=== PATIENT | female | born 1995 | race African-American/Black ===

== ENCOUNTER 2019-09-26 22:53 | Emergency (ER) | payer OTHER ==
--- NOTE | 2019-09-27 01:26 | ED ---
Complex/Multi-Sys Presentation - HPI Summary HPI Summary: Patient is a 24 y/o F presenting to [facility] for allergic reaction. She states that she believes that she had an allergic reaction three days ago as she developed tingling at her arms and mouth, difficulty breathing deeply, and eye swelling. Patient reports that she took Benadryl and slept off her Sx but still continued to have some difficulty swallowing after the episode. She states that the Sx worsened this evening and she came to ED for evaluation. Patient states that she discovered that she had a shellfish allergy a year ago and states that she had a similar presentation of Sx. She states that she ate some noodles before her episode three days ago and had frozen pizza before her difficulty swallowing worsened this evening. PMHx of asthma noted. NKDA reported. LNMP was a month ago, patient states that she is slightly late but notes that she is on a new acne medication (spironolactone). FMHx of CA, HTN, asthma, and Penicillin allergy claimed. Patient has not had allergy testing. She notes that she has an epi-pen but did not use it. Patient has an appointment with an perfect bind machine operator in the next few months. Home medications and allergies are reviewed. - History Of Current Complaint Chief Complaint: EDAllergicReaction Time Seen by Provider: 09/27/19 01:03 Hx Obtained From: Patient Onset/Duration: Resolved Timing: Intermittent, Lasting: Severity Currently: None - pain denied Associated Signs And Symptoms: Positive: Other - difficulty swallowing, tingling at her arms and mouth, difficulty breathing deeply, and eye swelling - Allergies/Home Medications Allergies/Adverse Reactions: Allergies Allergy/AdvReac Type Severity Reaction Status Date / Time Egg Derived Allergy See Comment Verified 09/26/19 22:59 shellfish derived Allergy Eyes Verified 09/26/19 22:58 Itchy/Swollen/Red/Watery Home Medications: Home Medications Spironolactone 50 mg PO DAILY 09/27/19 [History Confirmed 09/27/19] PMH/Surg Hx/FS Hx/Imm Hx Respiratory History: Reports: Hx Asthma Sensory History: Denies: Hx Legally Blind, Hx Deafness Opthamlomology History: Denies: Hx Legally Blind EENT History: Denies: Hx Deafness Infectious Disease History: No Infectious Disease History: Denies: Traveled Outside the [place] in Last 30 Days - Family History Known Family History: Positive: Hypertension, Respiratory Disease - asthma , Other - FMHx of CA, HTN, asthma, and Penicillin allergy claimed - Social History Alcohol Use: Occasionally Substance Use Type: Reports: Marijuana Substance Use Comment - Amount & Last Used: occasional Smoking Status (MU): Never Smoked Tobacco - Additional Comments History Additional Comments: PMHx of asthma FMHx of CA, HTN, asthma, and Penicillin allergy Review of Systems Positive: Other - eye swelling Positive: Other - difficulty swallowing Positive: Other - difficulty with deep breaths Positive: Paresthesia - arms, mouth All Other Systems Reviewed And Are Negative: Yes Physical Exam - Summary Physical Exam Summary: General: Well-developed, Well-nourished female. No acute distress. HEENT: Normocephalic, Atraumatic. Eyes: Conjuctiva normal, PERRL. Oropharynx: Clear, mucous membranes moist, (-) exudates. Neck: Soft, FROM, (-) lymphadenopathy, (-) thyromegaly, (-) JVD. Cardiovascular: Normal sinus rhythm, (-) murmur. Lungs: Clear to auscultation bilaterally (-) wheezes, (-) rales, (-) rhonchi. Abdomen: Soft, non-tender, non-distended, (-) organomegaly, normal bowel sounds. Back: (-) CVA tenderness Extremities: No edema. Skin: Warm, dry, (-) rash. Neuro: Alert and oriented x3, moves all extremities equally. No ataxia. No gait disturbance. No sensory deficit. Normal strength, normal sensation. Psychiatric: Mood normal, affect normal. Triage Information Reviewed: Yes Vital Signs On Initial Exam: Initial Vitals Temp Pulse Resp BP Pulse Ox 98.6 F 96 16 141/96 100 09/26/19 22:54 09/26/19 22:54 09/26/19 22:54 09/26/19 22:54 09/26/19 22:54 Vital Signs Reviewed: Yes Procedures - Sedation Patient Received Moderate/Deep Sedation with Procedure: No Diagnostics - Vital Signs Vital Signs Temp Pulse Resp BP Pulse Ox 09/27/19 01:04 75 98 09/27/19 01:03 78 136/96 97 09/26/19 22:54 98.6 F 96 16 141/96 100 - Laboratory Lab Statement: Any lab studies that have been ordered have been reviewed, and results considered in the medical decision making process. Complex Multi-Symp Course/Dx Course Of Treatment: 24-year-old female presents from home by private vehicle for possible allergic reaction. She states Thursday night she developed tingling in her arms and her mouth. Some difficulty breathing. Also significant eye swelling. She took Benadryl. She notes a similar reaction to this a year ago and found out she had an allergy to shellfish. She states when this happened Thursday night she had had noodles. She still had some minor difficulty swallowing the next morning. Tonight she states her symptoms came back. Had eaten frozen pizza prior to that. Patient states she has only mild symptoms at this time. Did take Benadryl. Wasn't sure if she should take her EpiPen or not. Patient states she has been up with an perfect bind machine operator but is not for 2 months. Has not been seen previously by an perfect bind machine operator. Patient symptoms have improved with Benadryl. Physical exam and vital signs are normal. We'll discharge to home at this time. Have patient follow up with PCP. Try to move allergy appointment sooner for allergy testing. Follow-up sooner for any worsening symptoms. Patient advised if she should have any recurrent symptoms she should take Benadryl and Pepcid. EpiPen as directed. Patient also was reminded if she used her EpiPen she needs to come immediately to the hospital. Benadryl and slept off her Sx but still continued to have some difficulty swallowing after the episode. She states that the Sx worsened this evening and she came to ED for evaluation. Patient states that she discovered that she had a shellfish allergy a year ago and states that she had a similar presentation of Sx. She states that she ate some noodles before her episode three days ago and had frozen pizza before her difficulty swallowing worsened this evening. PMHx of asthma noted. - Diagnoses Provider Diagnoses: Allergic reaction Discharge ED - Sign-Out/Discharge Documenting (check all that apply): Patient Departure - DISCHARGE - Discharge Plan Condition: Stable Disposition: HOME Patient Education Materials: General Allergic Reaction (ED) Referrals: [facility] [Provider Group] - 3 Days Care [facility] [Outside] - 3 Days Additional Instructions: TAKE BENADRYL AND PEPCID AT THE FIRST SIGNS OF AN ALLERGIC REACTION. TAKE EPI- PEN DIRECTED. KEEP A FOOD DIARY. FOLLOW UP WITH YOUR PRIMARY CARE PHYSICIAN AND AN BLEACHING MACHINE OPERATOR WITHIN THREE DAYS. PLEASE RETURN TO ED FOR ANY NEW OR CONCERNING SYMPTOMS. - Billing Disposition and Condition Condition: STABLE Disposition: Home - Attestation Statements Document Initiated by Van: Yes Documenting Scribe: TAE MOLINA Provider For Whom Van is Documenting (Include Credential): YULI JACOBS MD Scribe Attestation: ITAE, scribed for YULI JACOBS MD on 09/27/19 at 2017. Scribe Documentation Reviewed: Yes Provider Attestation: The documentation as recorded by the TAE bloom accurately reflects the service I personally performed and the decisions made by me, YULI JACOBS MD Status of Scribe Document: Viewed
[2019-09-27 01:52] VITALS: BP 110/83
== END 2019-09-27 01:51 | disposition home or self-care (01) ==
LOC: ED 22:53
DX: T78.40XA Allergy, unspecified, initial encounter (principal); X58.XXXA Exposure to other specified factors, initial encounter; R20.2 Paresthesia of skin; J45.909 Unspecified asthma, uncomplicated; Z88.0 Allergy status to penicillin; Z79.899 Other long term (current) drug therapy
CPT/HCPCS: 99282